=== PATIENT | female | born 1990 | race Caucasian/White ===

== ENCOUNTER 2020-02-18 14:02 | Emergency (ER) | payer SELFPAY ==
[2020-02-18 14:14] VITALS: BP 137/80; PULSE 100; RESP 18; TEMP 36.8; O2SAT 98; BMI 38.2
--- NOTE | 2020-02-18 14:46 | ECG_ITS ---
Test Reason : DIZZINESS Blood Pressure : / mmHG Vent. Rate : 088 BPM Atrial Rate : 088 BPM P-R Int : 164 ms QRS Dur : 082 ms QT Int : 360 ms P-R-T Axes : 027 032 013 degrees QTc Int : 435 ms Normal sinus rhythm with sinus arrhythmia Normal ECG When compared with ECG of 16-FEB-2018 05:49, No significant change was found Referred By: Charu Jose Electronically Signed By:CARLOZ CRUZ
--- NOTE | 2020-02-18 14:53 | ED_ITS ---
HPI - Dizziness General Chief Complaint: Dizziness Stated Complaint: dizzy,diff articulating Time Seen by Provider: 02/18/20 14:35 Source: patient Mode of arrival: ambulatory History of Present Illness HPI Narrative: 29-year-old female with no significant PMHx presenting to ED complaining of room spinning dizziness worse with position changes, lightheadedness feeling like she may pass out, generalized fatigue, mild headache, nausea, and chronic abdominal pain x a few days. Reports difficulty concentrating, states she has to think harder than normal. Also reports decreased p.o. intake, and intermittent CP. Denies fever, chills, cough, SOB, vision changes, recent travel, sick contacts MD elicited complaint: dizziness, lightheadedness and disequilibrium Related Data Previous Rx's Medication Instructions Recorded meclizine 25 mg PO TID PRN #14 tab 02/18/20 Allergies Allergy/AdvReac Type Severity Reaction Status Date / Time azithromycin [AZITHROMYCIN] Allergy Unknown UNKNOWN Verified 02/18/20 14:17 cefuroxime [From CEFTIN] Allergy Unknown UNKNOWN Verified 02/18/20 14:17 latex [LATEX] Allergy Unknown UNKNOWN Verified 02/18/20 14:17 Penicillins [PENICILLINS] Allergy Unknown UNKNOWN Verified 02/18/20 14:17 Review of Systems Review of Systems: Constitutional: No Weight loss, No Fever, No Chills, No Night Sweats, + Fatigue, No Malaise ENT/Mouth: No Hearing loss, No Ear Pain, No Nasal Congestion, No Sinus Pain Eyes: No Eye Pain, No Swelling, No Redness, No Foreign Body, No Discharge, No Vision Changes Cardiovascular: + Chest Pain, No SOB, No Edema, No Palpitations Respiratory: No Cough, No Sputum, No Dyspnea Gastrointestinal: +Nausea, No Vomiting, No Diarrhea, No Constipation, +Chronic Abdominal pain Genitourinary: No irregular bleeding, No Dysuria, No Urinary Frequency, No Hematuria Musculoskeletal: No joint pain, No Myalgias, No Joint Swelling Skin: No Skin Lesions, No rash Neuro: No Weakness, +Dizziness, +lightheadedness, + Headache Yes all other systems are reviewed and are negative [facility] Past Medical History Attestation statement: The following information was validated with the patient. Social History Social History Alcohol intake: never Smoked in Last 30 Days: No Use of substances other than those prescribed or required for medical reasons: No Advance Directives: No Advance Directives Information Provided: No Physical Exam Vital Signs: Vital Signs: Last Vital Signs Temp 98.2 F 02/18/20 14:14 Pulse 98 02/18/20 16:46 Resp 16 02/18/20 16:46 BP 134/76 02/18/20 16:46 Pulse Ox 99 02/18/20 16:46 Body Mass Index 38.2 Const: General: cooperative and healthy appearing Orientation/consciousness: patient oriented x3 Limitations: no limitations HENMT: Head: Yes normal to inspection Ears: hearing grossly normal bilaterally General nose exam: Normal external nose present Face and sinus: Yes normal facial exam Eyes: General: appearance normal, both eyes and all related structures Pupils: Equal, round and reactive pupils present EOM: EOMs intact bilaterally Neck: Neck: Yes normal visual inspection and Yes no meningeal signs Resp: Effort & Inspection: normal respiratory effort Auscultation: clear to auscultation bilaterally, no crackles, no rhonchi and no wheezes Cardio: Rate: regular rate Heart sounds: S1 normal heart sound present and S2 normal heart sound present GI: Inspection: Yes normal to inspection Palpation (GI): Soft to palpation, nontender, no guarding and not rigid Skin: Rashes: no rashes Wounds: no wounds Neuro: General: patient oriented x3, gait normal, tone normal, moves all extremities, no meningeal signs, no focal motor deficits and CN's II-XI intact bilaterally Cranial nerves: Yes Equal, round and reactive pupils present Cognition (Neuro): normal cognition Gait exam (Neuro): Normal gait present Motor exam (neuro): 5/5 motor strength present throughout and Pronator motor function not present Coordination: [id number] test normal Extrem: General: Yes normal to inspection Course Course Course Narrative: -1557-- Orthostatic VS negative, UA and negative -1620--labs unremarkable Results discussed with patient including worrisome s/s and strict return precautions, pt verblized understanding and feels safe for d/c MDM - Dizziness MDM Narrative Medical decision making narrative: 29-year-old female with no significant PMHx presenting to ED complaining of room spinning dizziness worse with position changes, lightheadedness feeling like she may pass out, generalized fatigue, mild headache, nausea, and chronic abdominal pain x a few days. On exam VSS, NAD/well-appearing, no meningeal signs, no focal neuro deficits. Concern for BPPV vs dehydration vs anxiety vs complicated migraine [place] vs preganancy. Low concern for ICH/CVA/TIA or ACS. Low concern for intra-abdominal pathology w/o ttp on exam Plan: EKG, labs, UA, IVF, Sx Tx, Reassess Lab Data Result diagrams: 02/18/20 15:16 02/18/20 15:16 Labs: Lab Results 02/18/20 02/18/20 02/18/20 Range/Units 15:15 15:16 15:16 WBC 11.3 H (4.8-10.8) X10*3/uL RBC 4.63 (4.20-5.50) X10*6/uL Hgb 12.9 (12.0-16.0) g/dl Hct 40.2 (37-47) % MCV 86.8 (80-98) fL MCH 27.9 (27.0-33.0) pg MCHC 32.1 (31.0-35.0) g/dl RDW 13.3 (11.0-16.0) % Plt Count 350 (160-400) X10*3/uL MPV 9.6 (9.4-12.3) fL Immature Gran % (Auto) 0.4 (0.0-0.4) % Neut % (Auto) 66.9 (45-73) % Lymph % (Auto) 23.1 (20-40) % [place] % (Auto) 7.4 (2-11) % Eos % (Auto) 1.9 (0-4) % Baso % (Auto) 0.3 (0-2) % Lymph # (Auto) 2.6 (1.2-4.9) X10*3/uL [place] # (Auto) 0.8 (0.1-1.2) X10*3/uL Eos # (Auto) 0.2 (0.0-0.4) X10*3/uL Baso # (Auto) 0.0 (0.0-0.2) X10*3/uL Abs Immat Gran (auto) 0.04 H (0.00-0.03) X10*3/uL Absolute Neuts (auto) 7.6 (2.0-8.3) X10*3/uL Absolute Nucleated RBC 0.000 (0.0-0.012) X10*3/uL Nucleated RBC % (auto) 0.0 (0.0-0.2) /100WBC Hold Blue Top SEE NOTE Sodium (135-145) mmol/L Potassium (3.3-5.1) mmol/l Chloride (96-108) mmol/L Carbon Dioxide (22-29) mmol/L Anion Gap (12-20) BUN (9-16) mg/dL Creatinine (0.5-1.4) mg/dL Estim Creat Clear Calc Estimated GFR Random Glucose (60-115) mg/dL Calcium (8.4-10.2) mg/dL Magnesium (1.6-2.6) mg/dL Total Bilirubin (0.0-1.0) mg/dL Direct Bilirubin (0.0-0.5) mg/dL AST (5-31) U/L ALT (0-31) U/L Alkaline Phosphatase (39-117) U/L Troponin I High Sens (<3.5-17.0) ng/L Total Protein (6.5-8.0) g/dL Albumin (3.5-5.0) g/dL Lipase (8-78) U/L Urine Color YELLOW Urine Appearance CLEAR Urine pH 6.5 (5.0-8.0) Ur Specific [place] 1.010 (1.005-1.025) Urine Protein NEG (NEG-TRACE) MG/DL Urine Glucose (UA) NEG (NEG) MG/DL Urine Ketones NEG (NEG) MG/DL Urine Blood NEG (NEG) Urine Nitrite NEG (NEG) Ur Leukocyte Esterase TRACE H (NEG) Urine RBC 0 (0) /HPF Urine WBC 0 (0-4) /HPF Ur Squamous Epith Cells 1+ /LPF Urine Bacteria TRACE /LPF Urine Test NEGATIVE (NEGATIVE) 02/18/20 02/18/20 Range/Units 15:16 15:16 WBC (4.8-10.8) X10*3/uL RBC (4.20-5.50) X10*6/uL Hgb (12.0-16.0) g/dl Hct (37-47) % MCV (80-98) fL MCH (27.0-33.0) pg MCHC (31.0-35.0) g/dl RDW (11.0-16.0) % Plt Count (160-400) X10*3/uL MPV (9.4-12.3) fL Immature Gran % (Auto) (0.0-0.4) % Neut % (Auto) (45-73) % Lymph % (Auto) (20-40) % [place] % (Auto) (2-11) % Eos % (Auto) (0-4) % Baso % (Auto) (0-2) % Lymph # (Auto) (1.2-4.9) X10*3/uL [place] # (Auto) (0.1-1.2) X10*3/uL Eos # (Auto) (0.0-0.4) X10*3/uL Baso # (Auto) (0.0-0.2) X10*3/uL Abs Immat Gran (auto) (0.00-0.03) X10*3/uL Absolute Neuts (auto) (2.0-8.3) X10*3/uL Absolute Nucleated RBC (0.0-0.012) X10*3/uL Nucleated RBC % (auto) (0.0-0.2) /100WBC Hold Blue Top Sodium 135 (135-145) mmol/L Potassium 4.1 (3.3-5.1) mmol/l Chloride 103 (96-108) mmol/L Carbon Dioxide 23 (22-29) mmol/L Anion Gap 13 (12-20) BUN 8 L (9-16) mg/dL Creatinine 0.80 (0.5-1.4) mg/dL Estim Creat Clear Calc 125.5 Estimated GFR > 60 Random Glucose 95 (60-115) mg/dL Calcium 8.8 (8.4-10.2) mg/dL Magnesium 2.1 (1.6-2.6) mg/dL Total Bilirubin 0.4 (0.0-1.0) mg/dL Direct Bilirubin 0.2 (0.0-0.5) mg/dL AST 16 (5-31) U/L ALT 32 H (0-31) U/L Alkaline Phosphatase 114 (39-117) U/L Troponin I High Sens < 3.5 (<3.5-17.0) ng/L Total Protein 7.5 (6.5-8.0) g/dL Albumin 4.2 (3.5-5.0) g/dL Lipase 5 L (8-78) U/L Urine Color Urine Appearance Urine pH (5.0-8.0) Ur Specific [place] (1.005-1.025) Urine Protein (NEG-TRACE) MG/DL Urine Glucose (UA) (NEG) MG/DL Urine Ketones (NEG) MG/DL Urine Blood (NEG) Urine Nitrite (NEG) Ur Leukocyte Esterase (NEG) Urine RBC (0) /HPF Urine WBC (0-4) /HPF Ur Squamous Epith Cells /LPF Urine Bacteria /LPF Urine Test (NEGATIVE) Discharge Plan Discharge Clinical Impression: Lightheadedness, Dizziness Patient Disposition: Home, Self-Care Instructions: Lightheadedness (ED) Additional Instructions: Your blood work and urine were unremarkable today in the ED You need to stay hydrated at home Call your primary care doctor for follow-up If her symptoms persist or worsen, you develop constant worsening lightheadedness/dizziness, worsening headache, visual loss, chest pain or shortness of breath return to the ED Meclizine will help with dizziness/nausea, take as needed Based on your symptoms and history we have sent a COVID-19. Although your RESULT IS PENDING at this time. RESULTS should return within 72 hours. At this time you will be contacted with either NEGATIVE OR POSITIVE results. -Please wait until we contact you for your results. At this time you will be okay for discharge. Please plan for self quarantine for up to 14 days. Do not expose yourself to others. You may not go to work. If testing does come back negative you may return to activities as long as you are no longer having any symptoms for at least 3 days. Please continue to follow cold instructions and wash your hands frequently. You may take Tylenol as directed on the bottle for pain or fever. Patient seen in the emergency department on 09/05/2019 and should be excused from work until negative test results AND until 72 hours without any symptoms AND at least 10 days have passed since symptoms first appeared or since last exposure to COVID-19 positive patient CDC Guidelines for home isolation: - Stay away from others - WEAR A MASK if you are sick AND STAY HOME - Cover your mouth and nose with a tissue when you cough or sneeze. Dispose of tissues in a lined trash can and wash your hands immediately with soap and water for at least 20 seconds. If soap and water are not available, clean hands with alcohol-based hand manufacturer's service representative that contains at least 60% alcohol. - Clean your hands often with soap and water for at least 20 seconds - Avoid touching your eyes, nose and mouth with unwashed hands - Do not share dishes, drinking glasses, cups, eating utensils, towels, or bedding with other people in your home. After using these items, wash them thoroughly with soap and water or put in the youth director. - Clean high-touch surfaces in your isolation area ( sick room and bathroom) every day; let a caregiver clean and disinfect high-touch surfaces in other areas of the home. Clean the area or item with soap and water or another detergent if it is dirty. Then, use a household disinfectant. - Limit contact with pets and animals: If you must care for a pet, wash your hands before and after interacting with them) Prescriptions: New meclizine 25 mg tablet 25 mg PO TID PRN (Reason: dizziness) Qty: 14 RF: 0 Referrals: Renita Carmona MD [Primary Care Provider] - 2 days Stand Alone Forms: Work/School Release
[2020-02-18 15:28] LABS: MANUAL DIFF FLAG NO
[2020-02-18 15:32] LABS: Appearance Urine CLEAR; Color Urine YELLOW; Glucose Urine UA NEG (NEG); Leukocyte Esterase Urine TRACE (NEG); Nitrite Urine NEG (NEG); PH 6.5 (5.0-8.0); Urine Blood NEG (NEG); Urine Ketones NEG (NEG); Urine Protein NEG (NEG-TRACE)
[2020-02-18] MEDS: 0.9 % Sodium Chloride 1,000 ML 999 ML IVCONT (15:34)
[2020-02-18] MEDS: Acetaminophen 325 MG TABLET 650 MG PO (15:34)
[2020-02-18] MEDS: ondansetron HCL 4 MG/2 ML VIAL IVPUSH (15:34)
[2020-02-18 15:35] LABS: Basophils Percent Auto 0.3 % (0-2); Eosinophils Absolute Auto 0.2 X10*3/uL (0.0-0.4); Eosinophils Percent Auto 1.9 % (0-4); Hematocrit 40.2 % (37-47); Hemoglobin 12.9 g/dl (12.0-16.0); Imm Gran Abs Auto 0.04 X10*3/uL (0.00-0.03); Imm Gran Pct Auto 0.4 % (0.0-0.4); Lymphocytes Absolute Auto 2.6 X10*3/uL (1.2-4.9); Lymphocytes Percent Auto 23.1 % (20-40); Mean Corpuscular HGB Conc 32.1 g/dl (31.0-35.0); Mean Corpuscular Hemoglobin 27.9 pg (27.0-33.0); Mean Corpuscular Volume 86.8 fL (80-98); Mean Platelet Volume 9.6 fL (9.4-12.3); Monocytes Absolute Auto 0.8 X10*3/uL (0.1-1.2); Monocytes Percent Auto 7.4 % (2-11); Neutrophils Absolute Auto 7.6 X10*3/uL (2.0-8.3); Neutrophils Percent Auto 66.9 % (45-73); Platelet Count 350 X10*3/uL (160-400); Red Blood Count 4.63 X10*6/uL (4.20-5.50); Red Cell Distribution Width 13.3 % (11.0-16.0); White Blood Count 11.3 X10*3/uL (4.8-10.8)
[2020-02-18 15:36] VITALS: BP 121/70; BP 128/73; PULSE 85; PULSE 88
[2020-02-18 15:36] LABS: UPreg QC Valid YES; Urine Pregnancy NEGATIVE (NEGATIVE)
[2020-02-18 15:39] VITALS: BP 116/77; PULSE 90
[2020-02-18 15:46] LABS: Bacteria Urine TRACE /LPF; RBC Urine 0 /HPF (0); Squamous Epithelial Cell Urine 1+ /LPF; WBC Urine 0 /HPF (0-4)
[2020-02-18 16:12] LABS: Alanine Aminotransferase 32 U/L (0-31); Albumin Level 4.2 g/dL (3.5-5.0); Alkaline Phosphatase 114 U/L (39-117); Anion Gap 13 (12-20); Aspartate Amino Transferase 16 U/L (5-31); Bilirubin Direct 0.2 mg/dL (0.0-0.5); Bilirubin Total 0.4 mg/dL (0.0-1.0); Blood Urea Nitrogen 8 mg/dL (9-16); Calcium 8.8 mg/dL (8.4-10.2); Carbon Dioxide 23 mmol/L (22-29); Chloride 103 mmol/L (96-108); Creatinine Clr Calc Pharmacy 125.5; Estimated Glomerular Filt Rate > 60; Glucose Random 95 mg/dL (60-115); Lipase 5 U/L (8-78); Magnesium 2.1 mg/dL (1.6-2.6); Potassium 4.1 mmol/l (3.3-5.1); Sodium 135 mmol/L (135-145); Total Protein 7.5 g/dL (6.5-8.0)
[2020-02-18 16:13] LABS: Troponin-I High Sensitivity < 3.5 ng/L (<3.5-17.0)
[2020-02-18] MEDS: diphenhydrAMINE HCL 50 MG/ML VIAL 12.5 MG IVPUSH (16:44)
[2020-02-18] MEDS: Meclizine HCl 25 MG TABLET PO (16:44)
[2020-02-18 16:46] VITALS: BP 134/76; PULSE 98; RESP 16; O2SAT 99
[2020-02-18 18:08] VITALS: BP 124/60; PULSE 93; RESP 14; TEMP 36.7; O2SAT 96
== END 2020-02-18 18:51 | disposition home or self-care (01) ==
PROVIDERS: Physician Assistant; Emergency Provider Emergency Medicine Emergency Medical Services; PCP Internal Medicine
DX: R42 Dizziness and giddiness (principal); Z20.828 Contact with and (suspected) exposure to other viral communicable diseases; R53.83 Other fatigue
CPT/HCPCS: 36415; 80048; 80076; 81001; 81025; 83690; 83735; 84484; 85025; 87086; 93005; 96361; 96374; 96375; 99284; J1200; J2405; U0003

== ENCOUNTER 2020-05-27 00:56 | Emergency (ER) | payer OTHER, SELFPAY ==
--- NOTE | ~2020-05-27 | XR_ITS ---
EXAMINATION: XR CHEST CLINICAL INFORMATION: Cough COMPARISON: None TECHNIQUE: AP portable upright view of the chest FINDINGS: Lungs are clear. No consolidation, pneumothorax, or pleural effusion. Cardiac and mediastinal contours are normal. Pulmonary vasculature is unremarkable. Osseous structures are unremarkable. XR/XR chest 1V IMPRESSION: No acute cardiopulmonary findings
--- NOTE | 2020-05-27 01:49 | ED_ITS ---
HPI - General Adult General Chief complaint: General Medical Stated complaint: sore throat/rash in mouth Time Seen by Provider: 05/27/20 01:34 Source: patient Mode of arrival: ambulatory Limitations: no limitations History of Present Illness HPI narrative: Patient comes to emergency room complaining of worsening cough. Patient states she has chronic cough from GERD. However, the cough has been getting were starting today. Patient states that she has a rash in the lateral aspects of her cheek. Patient states that she does not have any new medications, no hives, no fever chills. Related Data Previous Rx's Medication Instructions Recorded meclizine 25 mg PO TID PRN #14 tab 02/18/20 Allergies Allergy/AdvReac Type Severity Reaction Status Date / Time azithromycin [AZITHROMYCIN] Allergy Unknown UNKNOWN Verified 02/18/20 14:17 cefuroxime [From CEFTIN] Allergy Unknown UNKNOWN Verified 02/18/20 14:17 latex [LATEX] Allergy Unknown UNKNOWN Verified 02/18/20 14:17 Penicillins [PENICILLINS] Allergy Unknown UNKNOWN Verified 02/18/20 14:17 Review of Systems Review of Systems: Constitutional : No Weight loss, No Fever, No Chills, No Night Sweats, No Fatigue, No Malaise ENT/Mouth : No Hearing loss, No Ear Pain, No Nasal Congestion, No Sinus Pain, complaining of a raspy sensation in her throat, No sore throat, No Rhinorrhea, No Swallowing Difficulty, complaining of marked in her inner cheeks in the mouth Eyes: No Eye Pain, No Swelling, No Redness, No Foreign Body, No Discharge, No Vision Changes Cardiovascular : No Chest Pain, No SOB, No Dyspnea on Exertion, No Orthopnea, No Edema, No Palpitations Respiratory : Chronic dry Cough, No Sputum, No Wheezing, No Smoke Exposure, No Dyspnea Gastrointestinal : No Nausea, No Vomiting, No Diarrhea, No Constipation, No abdominal Pain, No Hematochezia, No Melena Genitourinary : no irregular bleeding, No Dysuria, No Urinary Frequency, No Hematuria, No Urinary Incontinence, No Urgency, No Flank Pain, No Urinary Flow Changes, No Hesitancy Musculoskeletal : No joint pain, No Myalgias, No Joint Swelling Skin : No Skin Lesions, No rash Neuro : No Weakness, No Numbness, No Paresthesias, No Loss of Consciousness, No Dizziness, No Headache Psych : No Anxiety/Panic, No Depression, No SI/HI/AH/VH, No Social Issues, Heme/Lymph: No Bruising, No Bleeding,No Lymphadenopathy Endocrine : No Polyuria, No Polydipsia, No Temperature Intolerance [facility] Past Medical History Medical History (Updated 05/27/20 @ 01:57 by Katie Hummel MD) Anxiety Asthma Social History Social History Alcohol intake: never Advance Directives: No Physical Exam Vital Signs: Vital Signs: Last Vital Signs Temp 99.3 F 05/27/20 01:50 Pulse 86 05/27/20 01:50 Resp 18 05/27/20 01:50 BP 127/81 05/27/20 01:50 Pulse Ox 98 05/27/20 01:50 Body Mass Index 35.2 Appearance: Alert. Oriented X3. Anxious, teary Eyes: Pupils equal, round and reactive to light. ENT: Pharynx normal. No rash/vesicles, no exudates. Bite palacios in both inner cheeks Neck: Normal inspection. Neck supple. No lymph nodes noted. No crepitus CVS: Normal heart rate and rhythm. Pulses normal. Normal S1 and S2 Respiratory: No respiratory distress. Breath sounds normal. No Wheezing. No rales Abdomen: Soft and nontender. No rigidity. No distention. good BS x4 Skin: Skin warm and dry. Normal skin color. Normal skin turgor. Extremities: No lower extremity edema. No lower extremity edema. No Lacerations. No Rash Neuro: Oriented X 3. No motor deficit. No sensory deficit. Moving all extermities. No slurred speech. Course Course Course Narrative: I discussed the x-ray with the patient, no acute finding. Patient has known other new symptoms, patient was tested for COVID-19, results pending, patient informed that she would receive a phone call at home if the tests are positive. Medical Decision Making Imaging Data Chest x-ray: Radiologist's impression: Lungs are clear. No consolidation, pneumothorax, or pleural effusion. Cardiac and mediastinal contours are normal. Pulmonary vasculature is unremarkable. Osseous structures are unremarkable. XR/XR chest 1V IMPRESSION: No acute cardiopulmonary findings ECG Data Attestation: I personally reviewed and interpreted this ECG as follows: Discharge Plan Discharge Clinical Impression: Cough Patient Disposition: Home, Self-Care Instructions: Chronic Cough (ED) Additional Instructions: Please follow-up with your primary care physician tomorrow. If you have any worsening or new symptoms, please return to the emergency room or call 911 Prescriptions: No Action meclizine 25 mg tablet 25 mg PO TID PRN (Reason: dizziness) Qty: 14 RF: 0
[2020-05-27 01:50] VITALS: BP 127/81; PULSE 86; RESP 18; TEMP 37.4; O2SAT 98; BMI 35.2
--- NOTE | 2020-05-27 02:13 | PC.NURSE ---
No working ticket printer available at this time. Printed regular ED sticker with ABLIAI and time collected (02:10am) written on label. COVID/Flu/RSV swab sent to lab for analysis. Awaiting results.
[2020-05-27 02:57] LABS: Influenza A PCR NEGATIVE (Negative); Influenza B PCR NEGATIVE (Negative); Resp Syncy Virus RNA Qual PCR NEGATIVE (Negative); SARS COV2 PCR INHOUSE NEGATIVE (Negative)
== END 2020-05-27 03:03 | disposition home or self-care (01) ==
PROVIDERS: Emergency Provider Emergency Medicine; PCP Internal Medicine
DX: R05 Cough (principal); Z20.822 Contact with and (suspected) exposure to COVID-19; Z79.899 Other long term (current) drug therapy
CPT/HCPCS: 0241U; 36415; 71045; 99283

== ENCOUNTER 2022-05-26 06:32 | Emergency (ER) | payer OTHER, SELFPAY ==
[2022-05-26 06:42] VITALS: BP 118/76; PULSE 112; RESP 18; TEMP 36.4; O2SAT 96; BMI 37.8
[2022-05-26 07:16] LABS: Basophils Percent Auto 0.2 % (0-2); Hematocrit 45.9 % (37.0-47.0); Hemoglobin 14.9 g/dl (12.0-16.0); Imm Gran Abs Auto 0.05 X10*3/uL (0.00-0.03); Imm Gran Pct Auto 0.3 % (0.0-0.4); Lymphocytes Absolute Auto 0.5 X10*3/uL (1.2-4.9); Lymphocytes Percent Auto 3.1 % (20-40); MANUAL DIFF FLAG SCAN; Mean Corpuscular HGB Conc 32.5 g/dl (31.0-35.0); Mean Corpuscular Volume 86.1 fL (80.0-98.0); Mean Platelet Volume 9.6 fL (9.4-12.3); Monocytes Absolute Auto 0.3 X10*3/uL (0.1-1.2); Neutrophils Absolute Auto 15.7 x10*3/uL (2.0-8.3); Neutrophils Percent Auto 94.4 % (45-73); Platelet Count 376 X10*3/uL (160-400); Red Blood Count 5.33 X10*6/uL (4.20-5.50); Red Cell Distribution Width 13.2 % (11.0-16.0); SCAN SMEAR FLAG 1; White Blood Count 16.6 X10*3/uL (4.8-10.8)
--- NOTE | 2022-05-26 07:17 | PC.NURSE ---
Patient AOx 4 complaining of abd pain nausea and diarrhea, ABD soft tender took 2 doses of zofran at home with some effect. IV access obtained labs collected and sent will COM
--- NOTE | 2022-05-26 07:34 | ED_ITS ---
HPI - Nausea/Vomiting/Diarrhea General Chief complaint: Nausea/Vomiting/Diarrhea Stated complaint: Abd pain/vomiting/Diarrhea/chills Time Seen by Provider: 05/26/22 07:33 Source: patient Mode of arrival: ambulatory Limitations: no limitations History of Present Illness HPI Narrative: Patient with nausea, vomiting and diarrhea continously since last night. States that it is coming from both ends. MD elicited complaint: nausea, vomiting and diarrhea Associated nausea: Yes Associated abdominal pain: Yes Location of pain: diffuse Pain consistency: intermittent Severity: moderate Quality: cramping Related Data Previous Rx's Medication Instructions Recorded meclizine 25 mg tablet 25 mg PO TID PRN dizziness #14 tabs 02/18/20 ondansetron 4 mg disintegrating 4 mg PO Q8H 4 days #12 tabs 05/26/22 tablet pantoprazole 40 mg tablet,delayed 40 mg PO DAILY #20 tabs 05/26/22 release (Protonix) Allergies Allergy/AdvReac Type Severity Reaction Status Date / Time azithromycin [AZITHROMYCIN] Allergy Unknown UNKNOWN Verified 05/26/22 06:47 cefuroxime [From CEFTIN] Allergy Unknown UNKNOWN Verified 05/26/22 06:47 latex [LATEX] Allergy Unknown UNKNOWN Verified 05/26/22 06:47 Penicillins [PENICILLINS] Allergy Unknown UNKNOWN Verified 05/26/22 06:47 Review of Systems Review of Systems: Yes all other systems are reviewed and are negative Gastrointestinal: Gastrointestinal: Reports diarrhea, Reports nausea and Reports vomiting Neurologic: Denies Sensory deficit (Neuro) [facility] Past Medical History Medical History Anxiety Asthma Social History Social History Alcohol intake: never Advance Directives: No Advance Directives Information Provided: Yes Physical Exam Vital Signs: Vital Signs: Last Vital Signs Temp 97.5 F 05/26/22 06:42 Pulse 112 H 05/26/22 06:42 Resp 18 05/26/22 06:42 BP 118/76 05/26/22 06:42 Pulse Ox 96 05/26/22 06:42 O2 Del Method 05/26/22 06:42 BMI result Body Mass Index 37.8 Const: General: healthy appearing Nutritional Appearance: average body habitus Orientation/consciousness: oriented to person and patient oriented x3 Limitations: no limitations HEENT: Head: Yes normal to inspection Ears: external ears normal General nose exam: Normal external nose present Mouth: Normal oral and palatal mucosa present and oropharynx normal Throat: Yes posterior oropharynx normal Eyes: General: appearance normal, both eyes and all related structures Neck: Other: supple Neck: Yes normal visual inspection Chest: Chest palpation & inspection: normal inspection of the chest Resp: Auscultation: clear to auscultation bilaterally Cardio: Jugular venous distension: no JVD Rate: regular rate Rhythm: regular rhythm Heart sounds: S1 normal heart sound present and S2 normal heart sound present GI: Inspection: Yes normal to inspection Palpation (GI): Soft to palpation, nontender and No hepatosplenomegaly present Auscultation: normal bowel sounds : General: Yes no CVA tenderness Back/Spine/Pelvis: Back: no CVA tenderness Skin: General skin exam: no rashes or lesions noted Neuro: General: oriented to person and patient oriented x3 Cranial nerves: Yes CN's II-XII intact bilaterally Motor exam (neuro): 5/5 motor strength present throughout Sensory Exam: No Sensory deficit (Neuro) Extrem: General: Yes normal to inspection Psych: Appearance: grossly normal Course Reevaluation(s) Reevaluation #1: soft abdomen better hydrated, will dc home on protonix and zofran Time: 09:37 Medications Administered Generic Name Dose Route Start Last Admin Trade Name Freq PRN Reason Stop Dose Admin Sodium Chloride 1,000 mls @ 500 mls/hr 05/26/22 07:45 05/26/22 07:51 Ns IVCONT 05/26/22 09:44 500 mls/hr .Q2H [place] Administration Discontinued Medications Generic Name Dose Route Start Last Admin Trade Name Freq PRN Reason Stop Dose Admin Promethazine HCl 25 mg/ Sodium 51 mls @ 204 mls/hr 05/26/22 07:38 05/26/22 08:24 Chloride IV 05/26/22 07:39 Infused ONCE ONE Infusion Pantoprazole Sodium 40 mg 05/26/22 07:38 05/26/22 07:50 Pantoprazole Sodium 40 Mg/10 Ml Vial IVPUSH 05/26/22 07:39 40 mg ONCE ONE Administration Medical Decision Making Differential Diagnosis Differential Diagnoses: The differential diagnosis associated with the presentation includes (viral gastroenteritis, food poisoning, appendicitis) Lab Data MDM Lab Attestation statement: I reviewed the patient's lab results. WBC elevated but abdomen is soft not focal will not need to CT at this time 05/26/22 07:08 05/26/22 07:08 Labs: Lab Results 05/26/22 05/26/22 Range/Units 07:08 07:08 WBC 16.6 H (4.8-10.8) X10*3/uL RBC 5.33 (4.20-5.50) X10*6/uL Hgb 14.9 (12.0-16.0) g/dl Hct 45.9 (37.0-47.0) % MCV 86.1 (80.0-98.0) fL MCH 28.0 (27.0-33.0) pg MCHC 32.5 (31.0-35.0) g/dl RDW 13.2 (11.0-16.0) % Plt Count 376 (160-400) X10*3/uL MPV 9.6 (9.4-12.3) fL Immature Gran % (Auto) 0.3 (0.0-0.4) % Neut % (Auto) 94.4 H (45-73) % Lymph % (Auto) 3.1 L (20-40) % [place] % (Auto) 2.0 (2-11) % Eos % (Auto) 0.0 (0-4) % Baso % (Auto) 0.2 (0-2) % Lymph # (Auto) 0.5 L (1.2-4.9) X10*3/uL [place] # (Auto) 0.3 (0.1-1.2) X10*3/uL Eos # (Auto) 0.0 (0.0-0.4) X10*3/uL Baso # (Auto) 0.0 (0.0-0.2) X10*3/uL Abs Immat Gran (auto) 0.05 H (0.00-0.03) X10*3/uL Absolute Neuts (auto) 15.7 H (2.0-8.3) x10*3/uL Absolute Nucleated RBC 0.000 (0.0-0.012) X10*3/uL Nucleated RBC % (auto) 0.0 (0.0-0.2) /100WBC Smear Tech's Comments VERIFIED Sodium 139 (135-145) mmol/L Potassium 4.4 (3.3-5.1) mmol/L Chloride 108 (96-108) mmol/L Carbon Dioxide 19 L (22-29) mmol/L Anion Gap 16 (12-20) BUN 14 (9-16) mg/dL Creatinine 0.93 (0.5-1.4) mg/dL Estim Creat Clear Calc 100.6 Estimated GFR > 60 Random Glucose 156 H (60-115) mg/dL Calcium 8.9 (8.4-10.2) mg/dL Total Bilirubin 1.1 H (0.0-1.0) mg/dL AST 22 (5-31) U/L ALT 38 H (0-31) U/L Alkaline Phosphatase 117 (39-117) U/L Total Protein 7.9 (6.5-8.0) g/dL Albumin 4.3 (3.5-5.0) g/dL Lipase 9 (8-78) U/L Tests considered The following testing was considered but not selected: CT of Abdomen considered but abdomen is completely soft will not CT at this time Discharge Plan Discharge Clinical Impression: Gastroenteritis, Viral illness Patient Disposition: Home, Self-Care Instructions: Acute Nausea and Vomiting (ED), Acute Diarrhea (ED) Prescriptions: New pantoprazole [Protonix] 40 mg tablet,delayed release (DR/EC) 40 mg PO DAILY Qty: 20 0RF ondansetron 4 mg tablet,disintegrating 4 mg PO Q8H 4 Days Qty: 12 0RF No Action meclizine 25 mg tablet 25 mg PO TID PRN (Reason: dizziness) Qty: 14 0RF Referrals: Stella Stanton MD [Primary Care Provider] - 5 days
[2022-05-26 07:42] LABS: Alanine Aminotransferase 38 U/L (0-31); Albumin Level 4.3 g/dL (3.5-5.0); Alkaline Phosphatase 117 U/L (39-117); Anion Gap 16 (12-20); Aspartate Amino Transferase 22 U/L (5-31); Bilirubin Total 1.1 mg/dL (0.0-1.0); Blood Urea Nitrogen 14 mg/dL (9-16); Calcium 8.9 mg/dL (8.4-10.2); Carbon Dioxide 19 mmol/L (22-29); Chloride 108 mmol/L (96-108); Creatinine Clr Calc Pharmacy 100.6; Estimated Glomerular Filt Rate > 60; Glucose Random 156 mg/dL (60-115); Lipase 9 U/L (8-78); Potassium 4.4 mmol/L (3.3-5.1); Sodium 139 mmol/L (135-145); Total Protein 7.9 g/dL (6.5-8.0)
[2022-05-26 07:43] LABS: SLIDE REVIEW VERIFIED
[2022-05-26] MEDS: Pantoprazole Sodium 40 MG/10 ML VIAL IVPUSH (07:50)
[2022-05-26] MEDS: 0.9 % Sodium Chloride 1,000 ML 500 ML IVCONT (07:51)
--- NOTE | 2022-05-26 08:37 | PC.NURSE ---
Patient reports relief post anti emetic sleeping will CTM
[2022-05-26 09:58] VITALS: BP 96/56; PULSE 86; RESP 18; TEMP 36.9; O2SAT 98
== END 2022-05-26 09:59 | disposition home or self-care (01) ==
PROVIDERS: Emergency Provider Emergency Medicine; PCP Internal Medicine
DX: K52.9 Noninfective gastroenteritis and colitis, unspecified (principal); B34.9 Viral infection, unspecified; Z79.899 Other long term (current) drug therapy
CPT/HCPCS: 36415; 80053; 83690; 85025; 96361; 96365; 96375; 99284; J2550

== ENCOUNTER 2022-07-02 14:23 | Emergency (ER) | payer OTHER, SELFPAY ==
--- NOTE | ~2022-07-02 | XR_ITS ---
EXAMINATION: XR FINGER, LEFT CLINICAL INFORMATION: Left thumb, rule out foreign body COMPARISON: None available. TECHNIQUE: Two views of the left left thumb. PA view of the hand. FINDINGS: The bones and soft tissues are normal. No fracture. Alignment is anatomic. Joint spaces are maintained. XR/XR finger LT min 2V IMPRESSION: No radiopaque foreign body identified.
[2022-07-02 14:28] VITALS: BP 119/89; PULSE 100; RESP 19; TEMP 36.6; O2SAT 100; BMI 37.0
--- NOTE | 2022-07-02 14:28 | ED_ITS ---
HPI - General Adult General Chief complaint: Wound/Laceration <Dipesh Sanchez - Last Filed: 07/02/22 14:30> Stated complaint: Hand lac <Dipesh Sanchez - Last Filed: 07/02/22 14:30> Time Seen by Provider: 07/02/22 16:42 <Dipesh Sanchez - Last Filed: 07/02/22 14:30> History of Present Illness HPI narrative: Patient complains of cut to the left thumb on glass when glass broke at home, no numbness no weakness no tingling no other injury <MAYRA Cheng - Last Filed: 07/02/22 17:38> Related Data Home medications: Previous Rx's Medication Instructions Recorded meclizine 25 mg tablet 25 mg PO TID PRN dizziness #14 tabs 02/18/20 ondansetron 4 mg disintegrating 4 mg PO Q8H 4 days #12 tabs 05/26/22 tablet pantoprazole 40 mg tablet,delayed 40 mg PO DAILY #20 tabs 05/26/22 release (Protonix) <Dipesh Sanchez - Last Filed: 07/02/22 14:30> Allergies/adverse reactions: Allergies Allergy/AdvReac Type Severity Reaction Status Date / Time azithromycin [AZITHROMYCIN] Allergy Unknown UNKNOWN Verified 07/02/22 14:27 cefuroxime [From CEFTIN] Allergy Unknown UNKNOWN Verified 07/02/22 14:27 latex [LATEX] Allergy Unknown UNKNOWN Verified 07/02/22 14:27 Penicillins [PENICILLINS] Allergy Unknown UNKNOWN Verified 07/02/22 14:27 <Dipesh Sanchez - Last Filed: 07/02/22 14:30> [facility] Past Medical History Source: nursing notes reviewed <MAYRA Cheng - Last Filed: 07/02/22 17:38> Medical History: Medical History Anxiety Asthma <Dipesh Sanchez - Last Filed: 07/02/22 14:30> Social History Social History: Social History Alcohol intake: never Advance Directives: No Advance Directives Information Provided: Yes <Dipesh Sanchez - Last Filed: 07/02/22 14:30> Physical Exam ED Vital Signs: Vital Signs - 24 hr 07/02/22 14:28 Temperature 98 F Pulse Rate 100 Respiratory Rate 19 Blood Pressure 119/89 Pulse Oximetry 100 Oxygen Delivery Method Room Air BMI result Body Mass Index 37.0 <Dipesh Sanchez - Last Filed: 07/02/22 14:30> Vital Signs - 24 hr 07/02/22 14:28 Temperature 98 F Pulse Rate 100 Respiratory Rate 19 Blood Pressure 119/89 Pulse Oximetry 100 Oxygen Delivery Method Room Air BMI result Body Mass Index 37.0 <MAYRA Cheng - Last Filed: 07/02/22 17:38> General appearance comfortable cooperative no distress Head is normocephalic atraumatic Neck is supple Respiratory no distress Extremities full range of motion x4 including left thumb left thumb exam on the medial aspect of the distal left thumb phalanx there is a 1 cm laceration that is not gaping it is straight, it is neurovascular intact distal there is no impairment to flexion or extension no tendon deficit <MAYRA Cheng - Last Filed: 07/02/22 17:38> Course Course Course Narrative: 32 year old female presents for evaluation for a small left thumb laceration. Approximately 1cm. Bleeding controlled. Cut was on a glass jar. Unknown last tetanus <Dipesh Sanchez - Last Filed: 07/02/22 14:30> 32 year old female presents for evaluation for a small left thumb laceration. Approximately 1cm. Bleeding controlled. Cut was on a glass jar. Unknown last tetanus It was confirmed patient had last tetanus shot in 2019 so is up-to-date The x-ray of the left thumb did not show any retained glass foreign body The left thumb was irrigated copiously with water Closed with Steri-Strips dressing applied <MAYRA Cheng - Last Filed: 07/02/22 17:38> Medications Administered Discontinued Medications Generic Name Dose Route Start Last Admin Trade Name Freq PRN Reason Stop Dose Admin Diphtheria/Tetanus/Acell Pertussis 0.5 ml 07/02/22 14:30 07/02/22 16:39 Diphth,Pertus(Acell),Tet Adult 0.5 Ml Syringe IM 07/02/22 14:31 Not Given .ONCE ONE <Dipesh Sanchez - Last Filed: 07/02/22 14:30> Medications Administered Discontinued Medications Generic Name Dose Route Start Last Admin Trade Name Regina PRN Reason Stop Dose Admin Diphtheria/Tetanus/Acell Pertussis 0.5 ml 07/02/22 14:30 07/02/22 16:39 Diphth,Pertus(Acell),Tet Adult 0.5 Ml Syringe IM 07/02/22 14:31 Not Given .ONCE ONE <MAYRA Cheng - Last Filed: 07/02/22 17:38> Discharge Plan Discharge Clinical Impression: Laceration <Dipesh Sanchez - Last Filed: 07/02/22 14:30> Patient Disposition: Home, Self-Care <Dipesh Sanchez - Last Filed: 07/02/22 14:30> Additional Instructions: X-ray did not show any foreign body that I can see Your up-to-date on her tetanus shot The cut was closed with Steri-Strips, you can remove the Steri-Strips in 4 days If the Band-Aid gets wet remove it let the air dry the Steri-Strips and then you can reapply a Band-Aid Return any time for redness swelling any sign of infection <Dipesh Sanchez - Last Filed: 07/02/22 14:30> Prescriptions: No Action meclizine 25 mg tablet 25 mg PO TID PRN (Reason: dizziness) Qty: 14 0RF pantoprazole [Protonix] 40 mg tablet,delayed release (DR/EC) 40 mg PO DAILY Qty: 20 0RF ondansetron 4 mg tablet,disintegrating 4 mg PO Q8H 4 Days Qty: 12 0RF <Dipesh Sanchez - Last Filed: 07/02/22 14:30>
== END 2022-07-02 17:41 | disposition home or self-care (01) ==
PROVIDERS: Emergency Provider Emergency Medicine Emergency Medical Services; PCP Internal Medicine
DX: S61.012A Laceration without foreign body of left thumb without damage to nail, initial encounter (principal); W25.XXXA Contact with sharp glass, initial encounter; Y93.9 Activity, unspecified; Y92.009 Unspecified place in unspecified non-institutional (private) residence as the place of occurrence of the external cause; Y99.9 Unspecified external cause status
CPT/HCPCS: 12001; 73140; 96372; 99283; 99284

== ENCOUNTER 2023-11-04 21:43 | Emergency (ER) | payer BC, SELFPAY ==
--- NOTE | 2023-11-04 | ECG_ITS ---
Test Reason : CHEST PAIN Blood Pressure : / mmHG Vent. Rate : 115 BPM Atrial Rate : 115 BPM P-R Int : 156 ms QRS Dur : 080 ms QT Int : 320 ms P-R-T Axes : 049 031 024 degrees QTc Int : 442 ms Sinus tachycardia Possible Left atrial enlargement Abnormal ECG When compared with ECG of 18-FEB-2020 15:26, Heart rate has increased Referred By: Generic ED Physician Electronically Signed By:HITESH SMART
[2023-11-04 22:00] LABS: MANUAL DIFF FLAG NO
[2023-11-04 22:04] VITALS: BP 138/72; PULSE 95; RESP 18; TEMP 36.6; O2SAT 96; BMI 36.0
[2023-11-04 22:06] LABS: Basophils Percent Auto 0.3 % (0-2); Eosinophils Absolute Auto 0.2 X10*3/uL (0.0-0.4); Eosinophils Percent Auto 1.8 % (0-4); Hematocrit 39.9 % (37.0-47.0); Hemoglobin 13.4 g/dl (12.0-16.0); Imm Gran Abs Auto 0.02 X10*3/uL (0.00-0.03); Imm Gran Pct Auto 0.2 % (0.0-0.4); Lymphocytes Absolute Auto 3.4 X10*3/uL (1.2-4.9); Lymphocytes Percent Auto 28.9 % (20-40); Mean Corpuscular HGB Conc 33.6 g/dl (31.0-35.0); Mean Corpuscular Hemoglobin 28.8 pg (27.0-33.0); Mean Corpuscular Volume 85.8 fL (80.0-98.0); Mean Platelet Volume 9.2 fL (9.4-12.3); Monocytes Absolute Auto 0.9 X10*3/uL (0.1-1.2); Monocytes Percent Auto 7.9 % (2-11); Neutrophils Absolute Auto 7.1 x10*3/uL (2.0-8.3); Neutrophils Percent Auto 60.9 % (45-73); Platelet Count 393 X10*3/uL (160-400); Red Blood Count 4.65 X10*6/uL (4.20-5.50); Red Cell Distribution Width 13.1 % (11.0-16.0); White Blood Count 11.6 X10*3/uL (4.8-10.8)
[2023-11-04 22:24] LABS: Alanine Aminotransferase 46 U/L (0-31); Albumin Level 4.1 g/dL (3.5-5.0); Alkaline Phosphatase 124 U/L (39-117); Anion Gap 13 (12-20); Aspartate Amino Transferase 19 U/L (5-31); Bilirubin Total 0.3 mg/dL (0.0-1.0); Blood Urea Nitrogen 11 mg/dL (9-16); Carbon Dioxide 24 mmol/L (22-29); Chloride 108 mmol/L (96-108); Creatinine Clr Calc Pharmacy 100.5; Estimated Glomerular Filt Rate > 60; Glucose Random 114 mg/dL (60-115); Lipase 21 U/L (8-78); Potassium 3.8 mmol/L (3.3-5.1); Sodium 141 mmol/L (135-145); Total Protein 7.9 g/dL (6.5-8.0)
[2023-11-04 22:35] LABS: Troponin-I High Sensitivity < 2.7 ng/L (<3.5-17.0)
--- NOTE | 2023-11-05 00:57 | ED_ITS ---
HPI - Arrhythmia/Palpitations General Chief Complaint: Arrhythmia/Palpitations Stated Complaint: chest pain, tachycardia Time Seen by Provider: 11/05/23 00:56 Source: patient Mode of arrival: ambulatory Limitations: no limitations History of Present Illness ED Provider: Orlando Kendrick PA-C HPI narrative: 33 yo female with history of anxiety and depression in recent episode of SVT presents to the ER for evaluation of ongoing panic and palpitations for the last 1 month. Patient [place] the [place] when she developed significant palpitations and fluttering in her chest. She went to the emergency department where she was found to be in SVT with heart rate to the to 30s. She required adenosine. She had a 24 hour Holter monitor afterward that was normal. She has an appointment coming up with the dial marker in 2 weeks. She reports since this event she has had increased panic and anxiety. She was prescribed some lorazepam that she has taken intermittently but she feels like once it wears off her anxiety is worse. She is on Cymbalta for depression and wants to talk to her doctor about getting on something for anxiety and get a therapist. She reports today she felt like she went back into SVT, she measured her heart rate was 130 for about 5-8 minutes. She came to the ER for further evaluation. She denies any associated chest pain. No difficulty breathing or shortness of breath. She denies any caffeine intake. She was lightheaded and dizzy during the event today which has self-resolved. MD complaint: heart racing and palpitations Onset (ago): hour(s) Duration: now resolved Severity: moderate Context: occurred during rest Arrhythmia history: SVT Associated symptoms: anxiety Related Data Previous Rx's ?Medication ?Instructions ?Recorded meclizine 25 mg tablet 25 mg PO TID PRN dizziness #14 tabs 02/18/20 ondansetron 4 mg disintegrating 4 mg PO Q8H 4 days #12 tabs 05/26/22 tablet pantoprazole 40 mg tablet,delayed 40 mg PO DAILY #20 tabs 05/26/22 release (Protonix) hydroxyzine HCl 25 mg tablet 25 mg PO TID PRN anxiety #14 tabs 11/05/23 metoprolol tartrate 25 mg tablet 12.5 mg (1/2 x 25 mg) PO DAILY PRN 11/05/23 SVT #10 tabs Allergies Allergy/AdvReac Type Severity Reaction Status Date / Time azithromycin [AZITHROMYCIN] Allergy Unknown UNKNOWN Verified 11/04/23 22:07 cefuroxime [From CEFTIN] Allergy Unknown UNKNOWN Verified 11/04/23 22:07 latex [LATEX] Allergy Unknown UNKNOWN Verified 11/04/23 22:07 Penicillins [PENICILLINS] Allergy Unknown UNKNOWN Verified 11/04/23 22:07 Review of Systems 2 Review of Systems: Yes all other systems are reviewed and are negative [facility] Past Medical History Medical History Anxiety Asthma Social History Social History Alcohol intake: never Advance Directives: No Advance Directives Information Provided: Yes Do you have a plan to hurt others: No Plan Physical Exam 2 Vital Signs: Vital Signs: Last Vital Signs Temp 97.8 F 11/04/23 22:04 Pulse 95 11/04/23 22:04 Resp 18 11/04/23 22:04 BP 138/72 11/04/23 22:04 Pulse Ox 96 11/04/23 22:04 O2 Del Method Room Air 11/04/23 22:04 BMI result Body Mass Index 36.0 Appearance: Alert. Oriented X3. Very anxious Head: normocephalic, atraumatic. Eyes: Pupils equal, round and reactive to light. ENT: Pharynx normal. No tonsillar swelling or exudate. Neck: Normal inspection. Neck supple. CVS: Normal heart rate and rhythm. Pulses normal. Respiratory: No respiratory distress. Breath sounds normal. Abdomen: Obese, Soft and nontender. +BS x4 Skin: Skin warm and dry. Normal skin color. Normal skin turgor. No rashes. Extremities: No lower extremity edema. No joint swelling. Neuro/psych: Oriented X 3. No motor deficit. No sensory deficit. CN II-XII intact. Normal speech and cognition. Anxious, good insight and judgment Medical Decision Making Medical Decision Making MDM Narrative: 33-year-old female with a history of anxiety and depression, recent SVT 1 month ago who presents to the ER for evaluation of ongoing anxiety and sensation of heart racing for the last 1 month. She had episode of tachycardia that lasted 5-8 minutes at home, then self-resolved. Unclear if this was SVT or not. On arrival to the ER she had some minor sinus tachycardia heart rates 115 on EKG. Her blood pressures were stable. She is clearly very anxious which is causing her to be more tachycardic. Her lab workup today is unremarkable with negative troponin. She has no current palpitations or chest pains. She has an appointment with the dial marker in 2 weeks. She has a primary care doctor that she wants to follow-up with for referral for therapy. She would also like to talk to him about getting on an SSRI or some other medication for anxiety. At this time she is not require inpatient level of care for her anxiety. Comfortable starting her on p.r.n. hydroxyzine for now, we will also prescribe p.r.n. Lopressor for to have at home. Advised to use p.r.n. heart rate greater than 140 sustained. Return precautions were discussed. Stable for discharge home Differential Diagnosis Differential Diagnoses: The differential diagnosis associated with the presentation includes Generalized anxiety disorder, panic attack, SVT, atrial tachycardia, other cardiac arrhythmia Admission/Observation Consideration of admission/observation: Escalation of care including admission/observation considered Lab Data MDM Lab Attestation statement: I reviewed the patient's lab results. Mild leukocytosis, negative troponin 11/04/23 21:54 11/04/23 21:54 Labs: Lab Results 11/04/23 Range/Units 21:54 WBC 11.6 H (4.8-10.8) X10*3/uL RBC 4.65 (4.20-5.50) X10*6/uL Hgb 13.4 (12.0-16.0) g/dl Hct 39.9 (37.0-47.0) % MCV 85.8 (80.0-98.0) fL MCH 28.8 (27.0-33.0) pg MCHC 33.6 (31.0-35.0) g/dl RDW 13.1 (11.0-16.0) % Plt Count 393 (160-400) X10*3/uL MPV 9.2 L (9.4-12.3) fL Immature Gran % (Auto) 0.2 (0.0-0.4) % Neut % (Auto) 60.9 (45-73) % Lymph % (Auto) 28.9 (20-40) % Payette % (Auto) 7.9 (2-11) % Eos % (Auto) 1.8 (0-4) % Baso % (Auto) 0.3 (0-2) % Lymph # (Auto) 3.4 (1.2-4.9) X10*3/uL Payette # (Auto) 0.9 (0.1-1.2) X10*3/uL Eos # (Auto) 0.2 (0.0-0.4) X10*3/uL Baso # (Auto) 0.0 (0.0-0.2) X10*3/uL Abs Immat Gran (auto) 0.02 (0.00-0.03) X10*3/uL Absolute Neuts (auto) 7.1 (2.0-8.3) x10*3/uL Absolute Nucleated RBC 0.000 (0.0-0.012) X10*3/uL Nucleated RBC % (auto) 0.0 (0.0-0.2) /100WBC Sodium 141 (135-145) mmol/L Potassium 3.8 (3.3-5.1) mmol/L Chloride 108 (96-108) mmol/L Carbon Dioxide 24 (22-29) mmol/L Anion Gap 13 (12-20) BUN 11 (9-16) mg/dL Creatinine 0.90 (0.5-1.4) mg/dL Estim Creat Clear Calc 100.5 Estimated GFR > 60 Random Glucose 114 (60-115) mg/dL Calcium 9.0 (8.4-10.2) mg/dL Total Bilirubin 0.3 (0.0-1.0) mg/dL AST 19 (5-31) U/L ALT 46 H (0-31) U/L Alkaline Phosphatase 124 H (39-117) U/L Troponin I High Sens < 2.7 (<3.5-17.0) ng/L Total Protein 7.9 (6.5-8.0) g/dL Albumin 4.1 (3.5-5.0) g/dL Lipase 21 (8-78) U/L Independent Interpretation I performed an independent interpretation of an: EKG Interpretation: Sinus tachycardia, ventricular rate 115 beats per minute, normal IN interval, normal QTC, no ST segment elevations or depressions Independent Historian Clinical information obtained from an independent historian. History obtained from or confirmed by: Spouse External Record Review External record reviewed: Office record, Outpatient record, Prior outpatient labs and Prior outpatient radiology Prescription Management I considered prescription management with: Other (Anxiolytic, beta-elly) Chronic Conditions Patient?s care impacted by: Other (Anxiety) Social Determinants Patient?s care significantly limited by Social Determinants of Health including: Other Social Determinant of Health Critical Care Time Critical Care Time Critical Care Time: No Discharge Plan Discharge Clinical Impression: Anxiety, Palpitations Patient Disposition: Home, Self-Care Instructions: Cognitive Behavioral Therapy (ED), Anxiety (ED) Additional Instructions: Your workup today was unremarkable. Recommend taking the prescribed hydroxyzine as needed for anxiety. Follow-up with your doctor regarding referral for therapy. If you feel palpitations in the ear heart is racing, similar to prior episode of SVT, measure heart rate, if it is greater than 130-140, it is safe to take 1/2 tablet of metoprolol to help slow your heart rate. Follow-up with your dial marker as scheduled If you develop new or worsening symptoms call 911 or come back to the ER for further evaluation. Prescriptions: New hydroxyzine HCl 25 mg tablet 25 mg PO TID PRN (Reason: anxiety) Qty: 14 0RF metoprolol tartrate 25 mg tablet 12.5 mg PO DAILY PRN (Reason: SVT) Qty: 10 0RF No Action meclizine 25 mg tablet 25 mg PO TID PRN (Reason: dizziness) Qty: 14 0RF pantoprazole [Protonix] 40 mg tablet,delayed release (DR/EC) 40 mg PO DAILY Qty: 20 0RF ondansetron 4 mg tablet,disintegrating 4 mg PO Q8H 4 Days Qty: 12 0RF Stand Alone Forms: Work/School Release Print Language: Belarusian
[2023-11-05] MEDS: clonazePAM 1 MG TABLET PO (01:33)
[2023-11-05 01:37] VITALS: BP 125/89; PULSE 90; RESP 16; TEMP 37; O2SAT 98
== END 2023-11-05 01:40 | disposition home or self-care (01) ==
PROVIDERS: Emergency Provider Emergency Medicine Emergency Medical Services; PCP Internal Medicine
DX: R07.89 Other chest pain (principal); R00.0 Tachycardia, unspecified; I49.9 Cardiac arrhythmia, unspecified; F41.1 Generalized anxiety disorder; F43.0 Acute stress reaction; Z79.899 Other long term (current) drug therapy
CPT/HCPCS: 36415; 80053; 83690; 84484; 85025; 93005; 99283

== ENCOUNTER 2023-12-31 19:55 | Emergency (ER) | payer BC, SELFPAY ==
[2023-12-31] VITALS (7 sets, daily range): BP systolic 109–137; BP diastolic 72–78; PULSE 98–223; RESP 16–28; TEMP 36.8–37.2; O2SAT 96–100; BMI 36.0
--- NOTE | 2023-12-31 19:57 | ECG_ITS ---
Test Reason : svt Blood Pressure : / mmHG Vent. Rate : 258 BPM Atrial Rate : 000 BPM P-R Int : 000 ms QRS Dur : 072 ms QT Int : 160 ms P-R-T Axes : 000 048 230 degrees QTc Int : 331 ms Supraventricular tachycardia Marked ST abnormality, possible lateral subendocardial injury Abnormal ECG When compared with ECG of 04-NOV-2023 21:43, Vent. rate has increased BY [address] now depressed in Anterolateral leads T wave inversion now evident in Anterolateral leads Referred By: Deloris Rodriguez Electronically Signed By:Jason Montano
--- NOTE | 2023-12-31 19:57 | ED.GENADULT ---
HPI - General Adult General Chief complaint: Arrhythmia/Palpitations Stated complaint: HR 263 Time Seen by Provider: 12/31/23 20:01 Source: patient and family Mode of arrival: ambulatory Limitations: no limitations History of Present Illness ED Provider: Dr. Katie Hummel HPI narrative: Patient comes to emergency room complaining of palpitations. Patient states that she has had SVT in the past. Today, patient states that she was reading a book and then started feeling palpitations, feels like she is running a marathon. Patient denies chest pain. On arrival to triage, patient's heart rate between 255 and 265 Related Data Previous Rx's ?Medication ?Instructions ?Recorded meclizine 25 mg tablet 25 mg PO TID PRN dizziness #14 tabs 02/18/20 ondansetron 4 mg disintegrating 4 mg PO Q8H 4 days #12 tabs 05/26/22 tablet pantoprazole 40 mg tablet,delayed 40 mg PO DAILY #20 tabs 05/26/22 release (Protonix) hydroxyzine HCl 25 mg tablet 25 mg PO TID PRN anxiety #14 tabs 11/05/23 metoprolol tartrate 25 mg tablet 12.5 mg (1/2 x 25 mg) PO DAILY PRN 11/05/23 SVT #10 tabs Allergies Allergy/AdvReac Type Severity Reaction Status Date / Time azithromycin [AZITHROMYCIN] Allergy Unknown UNKNOWN Verified 12/31/23 20:04 cefuroxime [From CEFTIN] Allergy Unknown UNKNOWN Verified 12/31/23 20:04 latex [LATEX] Allergy Unknown UNKNOWN Verified 12/31/23 20:04 Penicillins [PENICILLINS] Allergy Unknown UNKNOWN Verified 12/31/23 20:04 Review of Systems Review of Systems: Constitutional : No Weight loss, No Fever, No Chills, No Night Sweats, No Fatigue, No Malaise ENT/Mouth : No Hearing loss, No Ear Pain, No Nasal Congestion, No Sinus Pain, No Hoarseness, No sore throat, No Rhinorrhea, No Swallowing Difficulty Eyes: No Eye Pain, No Swelling, No Redness, No Foreign Body, No Discharge, No Vision Changes Cardiovascular : no chest pain, complaining of palpitations, mild shortness of breath Respiratory : No Cough, No Sputum, No Wheezing, No Smoke Exposure, No Dyspnea Gastrointestinal : No Nausea, No Vomiting, No Diarrhea, No Constipation, No abdominal Pain, No Hematochezia, No Melena Genitourinary : no irregular bleeding, No Dysuria, No Urinary Frequency, No Hematuria, No Urinary Incontinence, No Urgency, No Flank Pain, No Urinary Flow Changes, No Hesitancy Musculoskeletal : No joint pain, No Myalgias, No Joint Swelling Skin : No Skin Lesions, No rash Neuro : No Weakness, No Numbness, No Paresthesias, No Loss of Consciousness, No Dizziness, No Headache Psych : complaining of anxiety, No Depression, No SI/HI/AH/VH, No Social Issues, Heme/Lymph: No Bruising, No Bleeding,No Lymphadenopathy Endocrine : No Polyuria, No Polydipsia, No Temperature Intolerance [facility] Past Medical History Medical History (Updated 12/31/23 @ 20:33 by Katie Hummel MD) SVT (supraventricular tachycardia) Anxiety Asthma Social History Social History Alcohol intake: never Smoked in Last 30 Days: No Advance Directives: No Advance Directives Information Provided: No Do you have a plan to hurt others: No Plan Physical Exam ED Vital Signs: Vital Signs - 24 hr 12/31/23 20:03 12/31/23 20:10 12/31/23 20:11 Temperature 98.3 F Pulse Rate 223 H 220 H 164 H Respiratory Rate 28 H 26 H Blood Pressure 137/72 Pulse Oximetry 99 98 99 Oxygen Delivery Method Room Air Room Air Room Air 12/31/23 20:13 12/31/23 20:16 12/31/23 20:20 Temperature Pulse Rate 136 H 117 H 98 Respiratory Rate 22 H 26 H Blood Pressure 137/75 115/75 Pulse Oximetry 100 99 100 Oxygen Delivery Method Room Air Room Air 12/31/23 22:35 Temperature 98.9 F Pulse Rate 100 Respiratory Rate 16 Blood Pressure 109/78 Pulse Oximetry 96 Oxygen Delivery Method Room Air BMI result Body Mass Index 36.0 Const Other: Appearance: Alert. Oriented X3. No acute distress. Eyes: Pupils equal, round and reactive to light. ENT: Pharynx normal. Neck: Normal inspection. Neck supple. No lymph nodes noted. No crepitus CVS: heart rate approximately 250, regular, Pulses normal. Normal S1 and S2 Respiratory: No respiratory distress. Breath sounds normal. No Wheezing. No rales Abdomen: Soft and nontender. No rigidity. No distention. Skin: Skin warm and dry. Normal skin color. Normal skin turgor. Extremities: No lower extremity edema. No Lacerations. No Rash Neuro: Oriented X 3. No motor deficit. No sensory deficit. Moving all extremities. No slurred speech. CN 2 through 12 grossly intact Psych: calm, anxious, cooperative Course Course Course Narrative: RME performed by Deloris Rodriguez PA-C. Patient is a 33 year old assigned female at presenting to the emergency department with concerns for SVT. Patient states that she has a portable EKG machine at home and used it because her heart rate is in the 200s. Detailed physical exam and review of systems are deferred to the pre billing clinician. EKG, labs, imaging, and swabs ordered. Patient placed back in the waiting room pending room availability and results. Medications Administered Discontinued Medications Generic Name Dose Route Start Last Admin Trade Name Joséq PRN Reason Stop Dose Admin Adenosine 6 mg 12/31/23 20:01 12/31/23 20:17 Adenosine 6 Mg/2 Ml Vial IVPUSH 12/31/23 20:02 6 mg ONCE ONE Administration Adenosine 12 mg 12/31/23 20:21 12/31/23 20:11 Adenosine 6 Mg/2 Ml Vial IVPUSH 12/31/23 20:22 12 mg STAT STA Administration Lorazepam 1 mg 12/31/23 20:13 12/31/23 20:17 Lorazepam 2 Mg/Ml Vial IVPUSH 12/31/23 20:14 1 mg ONCE ONE Administration Metoprolol Tartrate 5 mg 12/31/23 20:13 12/31/23 20:16 Metoprolol Tartrate 5 Mg/5 Ml Vial IVPUSH 12/31/23 20:14 5 mg ONCE ONE Administration Protocol Medical Decision Making Medical Decision Making [facility] Narrative: my interpretation of EKG: SVT, heart rate 258, QTC 331 - patient was brought back, all the labs pending. - 6 mg of adenosine were given, heart rate improved from 260 down to 160. an additional dose of adenosine 12 mg was given, no further improvement. - After 5 mg of metoprolol IV, patient's heart rate improved, now in the 90s, sinus rhythm, blood pressure 115 over 74 . Patient also received a dose of IV lorazepam, patient was having a panic attack. - patient overall feeling much better. - My interpretation of labs, normal hematology and chemistry, troponin negative, TSH normal - patient has a blood pressure of 109/78, pulse 100, oxygen saturation between 96 to 99%, patient feels back to baseline. 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 They can discuss if the patient should be on daily metoprolol. - In the meantime, if patient has recurrent symptoms, pt has metoprolol PO, which was prescribed previously by her gas collection system operator Differential Diagnosis Differential Diagnoses: The differential diagnosis associated with the presentation includes Admission/Observation Consideration of admission/observation: Escalation of care including admission/observation considered Lab Data MDM Lab Attestation statement: I reviewed the patient's lab results. 12/31/23 20:06 12/31/23 20:06 Labs: Lab Results 12/31/23 12/31/23 Range/Units 20:06 22:39 WBC 14.9 H (4.8-10.8) X10*3/uL RBC 4.79 (4.20-5.50) X10*6/uL Hgb 13.6 (12.0-16.0) g/dl Hct 40.9 (37.0-47.0) % MCV 85.4 (80.0-98.0) fL MCH 28.4 (27.0-33.0) pg MCHC 33.3 (31.0-35.0) g/dl RDW 13.3 (11.0-16.0) % Plt Count 438 H (160-400) X10*3/uL MPV 9.2 L (9.4-12.3) fL Immature Gran % (Auto) 0.3 (0.0-0.4) % Neut % (Auto) 62.8 (45-73) % Lymph % (Auto) 27.7 (20-40) % [place] % (Auto) 7.8 (2-11) % Eos % (Auto) 1.1 (0-4) % Baso % (Auto) 0.3 (0-2) % Lymph # (Auto) 4.1 (1.2-4.9) X10*3/uL [place] # (Auto) 1.2 (0.1-1.2) X10*3/uL Eos # (Auto) 0.2 (0.0-0.4) X10*3/uL Baso # (Auto) 0.0 (0.0-0.2) X10*3/uL Abs Immat Gran (auto) 0.04 H (0.00-0.03) X10*3/uL Absolute Neuts (auto) 9.3 H (2.0-8.3) x10*3/uL Absolute Nucleated RBC 0.000 (0.0-0.012) X10*3/uL Nucleated RBC % (auto) 0.0 (0.0-0.2) /100WBC PT 12.0 (10.9-12.4) SEC INR 1.0 (0.9-1.1) APTT 31.4 (26.0-36.8) SEC Sodium 141 (135-145) mmol/L Potassium 3.5 (3.3-5.1) mmol/L Chloride 107 (96-108) mmol/L Carbon Dioxide 23 (22-29) mmol/L Anion Gap 15 (12-20) BUN 11 (9-16) mg/dL Creatinine 0.99 (0.5-1.4) mg/dL Estim Creat Clear Calc 91.3 Estimated GFR > 60 Random Glucose 106 (60-115) mg/dL Calcium 9.4 (8.4-10.2) mg/dL Magnesium 2.3 (1.6-2.6) mg/dL Total Bilirubin 0.3 (0.0-1.0) mg/dL AST 24 (5-31) U/L ALT 25 (0-31) U/L Alkaline Phosphatase 101 (39-117) U/L Troponin I High Sens < 2.7 (<3.5-17.0) ng/L Total Protein 8.1 H (6.5-8.0) g/dL Albumin 4.3 (3.5-5.0) g/dL TSH 1.98 (0.32-4.0) uIU/mL Urine Color Yellow Urine Appearance Clear Urine pH 6.0 (5.0-9.0) Ur Specific [place] 1.015 (1.005-1.025) Urine Protein Negative (Neg-Trace) mg/dL Urine Glucose (UA) Negative (Negative) mg/dL Urine Ketones Trace (Negative) mg/dL Urine Blood Negative (Negative) Urine Nitrite Negative (Negative) Ur Leukocyte Esterase Trace H (Negative) Urine RBC 0-2 (0-2) /HPF Urine WBC 6-10 H (0-5) /HPF Ur Squamous Epith Cells 0-2 (0-2) /HPF Urine Bacteria None Seen (None Seen) Hyaline Casts 0-2 (0-2) /LPF Influenza Type A (PCR) NEGATIVE (Negative) Influenza Type B (PCR) NEGATIVE (Negative) RSV RNA Qual (PCR) NEGATIVE (Negative) SARS-CoV-2 RNA (RT-PCR) NEGATIVE (Negative) Critical Care Time Critical Care Time Critical Care Time: Yes Total Critical Care Time: 60 Attestation: I have personally provided critical care time. Time includes review of lab data, radiology results, discussion with consultants, and monitoring for potential decompensation. Intervention performed as documented. Discharge Plan Discharge Clinical Impression: Supraventricular tachycardia, Anxiety Patient Disposition: Home, Self-Care Instructions: Anxiety (ED), Supraventricular Tachycardia (ED) Additional Instructions: Please follow-up with your primary care physician tomorrow. If you have any worsening or new symptoms, please return to the emergency room or call 911 Prescriptions: No Action meclizine 25 mg tablet 25 mg PO TID PRN (Reason: dizziness) Qty: 14 0RF pantoprazole [Protonix] 40 mg tablet,delayed release (DR/EC) 40 mg PO DAILY Qty: 20 0RF ondansetron 4 mg tablet,disintegrating 4 mg PO Q8H 4 Days Qty: 12 0RF hydroxyzine HCl 25 mg tablet 25 mg PO TID PRN (Reason: anxiety) Qty: 14 0RF metoprolol tartrate 25 mg tablet 12.5 mg PO DAILY PRN (Reason: SVT) Qty: 10 0RF Print Language: Upper Sorbian
[2023-12-31 20:09] LABS: MANUAL DIFF FLAG NO
[2023-12-31] MEDS: Adenosine 6 MG/2 ML VIAL 12 MG IVPUSH (20:11)
[2023-12-31 20:12] LABS: Basophils Percent Auto 0.3 % (0-2); Eosinophils Absolute Auto 0.2 X10*3/uL (0.0-0.4); Eosinophils Percent Auto 1.1 % (0-4); Hematocrit 40.9 % (37.0-47.0); Hemoglobin 13.6 g/dl (12.0-16.0); Imm Gran Abs Auto 0.04 X10*3/uL (0.00-0.03); Imm Gran Pct Auto 0.3 % (0.0-0.4); Lymphocytes Absolute Auto 4.1 X10*3/uL (1.2-4.9); Lymphocytes Percent Auto 27.7 % (20-40); Mean Corpuscular HGB Conc 33.3 g/dl (31.0-35.0); Mean Corpuscular Hemoglobin 28.4 pg (27.0-33.0); Mean Corpuscular Volume 85.4 fL (80.0-98.0); Mean Platelet Volume 9.2 fL (9.4-12.3); Monocytes Absolute Auto 1.2 X10*3/uL (0.1-1.2); Monocytes Percent Auto 7.8 % (2-11); Neutrophils Absolute Auto 9.3 x10*3/uL (2.0-8.3); Neutrophils Percent Auto 62.8 % (45-73); Platelet Count 438 X10*3/uL (160-400); Red Blood Count 4.79 X10*6/uL (4.20-5.50); Red Cell Distribution Width 13.3 % (11.0-16.0); White Blood Count 14.9 X10*3/uL (4.8-10.8)
[2023-12-31] MEDS: Metoprolol Tartrate 5 MG/5 ML VIAL IVPUSH (20:16)
[2023-12-31] MEDS: LORazepam 2 MG/ML VIAL 1 MG IVPUSH (20:17)
[2023-12-31] MEDS: Adenosine 6 MG/2 ML VIAL IVPUSH (20:17)
[2023-12-31 20:19] LABS: Partial Thromboplastin Time 31.4 SEC (26.0-36.8)
[2023-12-31 20:31] LABS: Alanine Aminotransferase 25 U/L (0-31); Albumin Level 4.3 g/dL (3.5-5.0); Alkaline Phosphatase 101 U/L (39-117); Anion Gap 15 (12-20); Aspartate Amino Transferase 24 U/L (5-31); Bilirubin Total 0.3 mg/dL (0.0-1.0); Blood Urea Nitrogen 11 mg/dL (9-16); Calcium 9.4 mg/dL (8.4-10.2); Carbon Dioxide 23 mmol/L (22-29); Chloride 107 mmol/L (96-108); Creatinine Clr Calc Pharmacy 91.3; Estimated Glomerular Filt Rate > 60; Glucose Random 106 mg/dL (60-115); Magnesium 2.3 mg/dL (1.6-2.6); Potassium 3.5 mmol/L (3.3-5.1); Sodium 141 mmol/L (135-145); Total Protein 8.1 g/dL (6.5-8.0)
[2023-12-31 20:37] LABS: Troponin-I High Sensitivity < 2.7 ng/L (<3.5-17.0)
[2023-12-31 20:46] LABS: Thyroid Stimulating Hormone 1.98 uIU/mL (0.32-4.0)
[2023-12-31 20:47] LABS: Influenza A PCR NEGATIVE (Negative); Influenza B PCR NEGATIVE (Negative); Resp Syncy Virus RNA Qual PCR NEGATIVE (Negative); SARS COV2 PCR INHOUSE NEGATIVE (Negative)
[2023-12-31 22:51] LABS: Appearance Urine Clear; Color Urine Yellow; Glucose Urine UA Negative (Negative); Leukocyte Esterase Urine Trace (Negative); Nitrite Urine Negative (Negative); Specific Gravity - Urine 1.015 (1.005-1.025); UMIC TRIGGER UACC YES; Urine Blood Negative (Negative); Urine Ketones Trace mg/dL (Negative); Urine Protein Negative (Neg-Trace)
[2023-12-31 22:56] LABS: Bacteria Urine None Seen (None Seen); Hyaline Casts Urine 0-2 /LPF (0-2); RBC Urine 0-2 /HPF (0-2); Squamous Epithelial Cell Urine 0-2 /HPF (0-2); UACC Culture Trigger YES
--- NOTE | 2023-12-31 23:14 | PC.NURSE ---
this rn assumed care of pt, pt a&ox4, respirations even and unlabored. pt noted to be normal sinus 90-100bpm, pt reporting anxiety at this time due to being scared . aware.
[2024-01-01] MEDS: LORazepam 1 MG TABLET PO (00:04)
[2024-01-01 00:17] VITALS: BP 116/80; PULSE 91; RESP 17; TEMP 37; O2SAT 97
== END 2024-01-01 00:18 | disposition home or self-care (01) ==
PROVIDERS: Physician Assistant Medical; Emergency Provider Emergency Medicine
DX: I47.10 Supraventricular tachycardia, unspecified (principal); F41.9 Anxiety disorder, unspecified; R00.2 Palpitations; J45.909 Unspecified asthma, uncomplicated; Z03.818 Encounter for observation for suspected exposure to other biological agents ruled out; Z11.8 Encounter for screening for other infectious and parasitic diseases
CPT/HCPCS: 0241U; 80053; 81001; 83735; 84443; 84484; 85025; 85610; 85730; 87086; 93005; 96374; 96375; 96376; 99285; J0153; J2060

== ENCOUNTER → 2023-12-31 19:57 | Outpatient (BNV) | payer BC, SELFPAY | PROVIDERS: Emergency Provider Emergency Medicine; Visit Provider Internal Medicine Cardiovascular Disease | DX: I47.10 Supraventricular tachycardia, unspecified (principal) | CPT/HCPCS: 93010 ==

== ENCOUNTER 2024-01-24 16:21 | Emergency (ER) | payer BC, SELFPAY ==
--- NOTE | ~2024-01-24 | XR_ITS ---
EXAMINATION: XR CHEST CLINICAL INFORMATION: Chest pain. COMPARISON: Chest radiograph dated May 27, 2020. TECHNIQUE: Frontal view of the chest was obtained. FINDINGS: The heart is normal in size. Both lungs are clear. No large pleural effusion. No pneumothorax. No acute osseous abnormality. XR/XR chest 1V IMPRESSION: No acute cardiopulmonary disease. Electronically signed by: Scott Bal DO 01/24/2024 05:44 PM EST
--- NOTE | 2024-01-24 16:23 | ECG_ITS ---
Test Reason : CHEST PAIN Blood Pressure : / mmHG Vent. Rate : 096 BPM Atrial Rate : 096 BPM P-R Int : 126 ms QRS Dur : 080 ms QT Int : 352 ms P-R-T Axes : 014 022 016 degrees QTc Int : 444 ms Normal sinus rhythm Normal ECG When compared with ECG of 31-DEC-2023 19:52, Vent. rate has decreased BY 162 BPM Non-specific change in ST segment in Inferior leads ST no longer depressed in Anterolateral leads T wave inversion no longer evident in Anterolateral leads Referred By: Generic ED Physician Electronically Signed By:Jason Montano
[2024-01-24 16:30] VITALS: BP 126/85; PULSE 92; RESP 20; TEMP 36.7; O2SAT 98; BMI 36.0
[2024-01-24 16:50] LABS: MANUAL DIFF FLAG NO
[2024-01-24 16:57] LABS: Basophils Percent Auto 0.3 % (0-2); Eosinophils Absolute Auto 0.2 X10*3/uL (0.0-0.4); Eosinophils Percent Auto 2.3 % (0-4); Hematocrit 37.9 % (37.0-47.0); Hemoglobin 12.5 g/dl (12.0-16.0); Imm Gran Abs Auto 0.03 X10*3/uL (0.00-0.03); Imm Gran Pct Auto 0.3 % (0.0-0.4); Lymphocytes Absolute Auto 2.9 X10*3/uL (1.2-4.9); Lymphocytes Percent Auto 33.3 % (20-40); Mean Corpuscular Hemoglobin 28.5 pg (27.0-33.0); Mean Corpuscular Volume 86.3 fL (80.0-98.0); Mean Platelet Volume 9.5 fL (9.4-12.3); Monocytes Absolute Auto 0.8 X10*3/uL (0.1-1.2); Monocytes Percent Auto 8.7 % (2-11); Neutrophils Absolute Auto 4.9 x10*3/uL (2.0-8.3); Neutrophils Percent Auto 55.1 % (45-73); Platelet Count 356 X10*3/uL (160-400); Red Blood Count 4.39 X10*6/uL (4.20-5.50); Red Cell Distribution Width 13.1 % (11.0-16.0); White Blood Count 8.8 X10*3/uL (4.8-10.8)
[2024-01-24 17:05] LABS: Anion Gap 8 (12-20); Blood Urea Nitrogen 9 mg/dL (9-16); Calcium 8.4 mg/dL (8.4-10.2); Carbon Dioxide 27 mmol/L (22-29); Chloride 108 mmol/L (96-108); Creatinine Clr Calc Pharmacy 106.3; Estimated Glomerular Filt Rate > 60; Glucose Random 110 mg/dL (60-115); Potassium 3.9 mmol/L (3.3-5.1); Sodium 139 mmol/L (135-145)
[2024-01-24 17:15] LABS: Troponin-I High Sensitivity < 2.7 ng/L (<3.5-17.0)
== END 2024-01-24 20:18 | disposition left against medical advice (07) ==
LOC: HO.ED 20:05
PROVIDERS: Emergency Provider Emergency Medicine; PCP Internal Medicine
DX: R07.89 Other chest pain (principal); Z79.899 Other long term (current) drug therapy
CPT/HCPCS: 36415; 71045; 80048; 84484; 85025; 93005; 99281; 99283

== ENCOUNTER → 2024-01-24 16:23 | Outpatient (BNV) | payer BC, SELFPAY | PROVIDERS: Emergency Provider Emergency Medicine; PCP Internal Medicine; Visit Provider Internal Medicine Cardiovascular Disease | DX: R07.9 Chest pain, unspecified (principal) | CPT/HCPCS: 93010 ==